=== PATIENT | female | born 1985 | race Hispanic/Latino ===

== ENCOUNTER 2020-08-17 06:27 | Day surgery (SDC) | payer BC ==
[2020-08-14 15:00] VITALS: BP 145/70
[2020-08-14 15:20] LABS: BASOPHILS % (AUTO) 0.3 % (0.0-5.0); EOSINOPHILS % (AUTO) 1.3 % (0.0-8.0); HEMATOCRIT 39.3 % (36-48); LYMPHOCYTES % (AUTO) 26.1 % (21.0-51.0); MEAN CORPUSCULAR HGB CONC 32.1 g/dL (32.0-36.0); MEAN CORPUSCULAR VOLUME 87.3 fL (79-99); MONOCYTES % (AUTO) 8.5 % (3.0-13.0); NEUTROPHILS % (AUTO) 63.5 % (40.0-77.0); PLATELET COUNT (AUTO) 336 K/uL (130-400); RED CELL DISTRIBUTION WIDTH 12.8 % (11.0-15.5); WHITE BLOOD COUNT (AUTO) 9.3 K/uL (4.8-10.8)
[2020-08-14 15:28] LABS: CREATININE 0.6 mg/dL (0.5-1.5); POTASSIUM 4.2 mmol/L (3.5-5.1)
[~2020-08-17] VITALS: Ht 165.1 cm; Wt 72.5 kg
[2020-08-17 07:05] VITALS: BP 132/73
[2020-08-17] MEDS ORDERED: CEFAZOLIN SODIUM 1 GM VIAL ONE ×2 (07:55→08:17)
[2020-08-17] MEDS ORDERED: LACTATED RINGERS 1000ML 0 ML IV ONE (07:56)
[2020-08-17] MEDS ORDERED: BUPIVACAINE/PF 0.5% 10ML VIAL ONE (08:17)
[2020-08-17] MEDS ORDERED: LIDOCAINE HCL-MPF 0.5% 50ML VIAL IJ ONE (08:21)
[2020-08-17] MEDS ORDERED: PROPOFOL 10 MG/ML 20ML VIAL IV ONE (09:34)
[2020-08-17] MEDS ORDERED: LIDOCAINE HCL MPF 1% 5ML VIAL ONE (09:34)
[2020-08-17] MEDS ORDERED: MIDAZOLAM HCL 1 MG/ML 2ML VIAL ONE (09:34)
[2020-08-17] MEDS ORDERED: ROCURONIUM 10MG/1ML SYR 10 MG/ML ML ONE (09:34)
[2020-08-17] MEDS ORDERED: SUCCINYLCHOLINE CHLORIDE 20 MG/ML 10 ML VIAL ONE (09:34)
[2020-08-17] MEDS ORDERED: FENTANYL CITRATE PF 50 MCG/1 ML 2ML VIAL ONE (09:37)
== END 2020-08-17 08:30 | disposition home or self-care (01) ==
LOC: DAH 06:27
PROVIDERS: ATTEND Orthopaedic Surgery
DX: M25.532 Pain in left wrist (principal); Z20.822 Contact with and (suspected) exposure to COVID-19; Z53.8 Procedure and treatment not carried out for other reasons
CPT/HCPCS: 36415 ×2; 80048; 81025; 84703; 85025; 87635; A4215; A4221; A4222; A4223; C9803; J0330; J2250; J2704; J3010; J3490 ×2; J0690; J7120